=== PATIENT | male | born 1955 | race Caucasian/White ===

== ENCOUNTER 2023-02-02 18:24 | Emergency (ER) | payer MEDICARE ==
[~2023-02-02] VITALS: Ht 188 cm; Wt 80.6 kg
[2023-02-02 18:33] VITALS: BP 107/57; PULSE 74; RESP 18; TEMP 97; O2SAT 94
== END 2023-02-02 22:56 | disposition left against medical advice (07) ==
LOC: ER 18:25
DX: R07.81 Pleurodynia (principal); Z53.21 Procedure and treatment not carried out due to patient leaving prior to being seen by health care provider
CPT/HCPCS: 99281